=== PATIENT | male | born 1995 | race Caucasian/White ===

== ENCOUNTER 2017-11-30 08:57 | Emergency (ER) | payer OTHER ==
[~2017-11-30] VITALS: Ht 200.7 cm; Wt 81.7 kg
[2017-11-30] MEDS ORDERED: METHYLPREDNISOLO4 M1 PO (09:38)
[2017-11-30] MEDS ORDERED: BACLOFEN10 MG PO (09:38)
[2017-11-30] MEDS ORDERED: NORCO 5-325 TA1 EACH PO (09:38)
== END 2017-11-30 10:32 | disposition home or self-care (01) ==
LOC: ED 08:57
DX: S39.012A Strain of muscle, fascia and tendon of lower back, initial encounter (principal); X50.9XXA Other and unspecified overexertion or strenuous movements or postures, initial encounter
CPT/HCPCS: 99283

== ENCOUNTER 2019-04-25 19:21 | Emergency (ER) | payer OTHER ==
[~2019-04-25] VITALS: Ht 200.7 cm; Wt 93.0 kg
[~2019-04-25 19:21] MED LIST: BACLOFEN10 MG PO; METHYLPREDNISOLO4 M1 PO; NORCO 5-325 TA1 EACH PO
[2019-04-25] MEDS ORDERED: IBU-200200 MG PO (19:33)
== END 2019-04-25 20:25 | disposition home or self-care (01) ==
LOC: ED 19:21
DX: S09.90XA Unspecified injury of head, initial encounter (principal); W22.8XXA Striking against or struck by other objects, initial encounter
CPT/HCPCS: 70450; 99284-25